=== PATIENT | male | born 1990 | race African-American/Black ===

== ENCOUNTER 2018-05-16 15:38 | Emergency (ER) | payer SELFPAY ==
[~2018-05-16] VITALS: Ht 177.8 cm; Wt 130.0 kg
[2018-05-16] MEDS ORDERED: TORADOL PO (16:34)
[2018-05-16 16:38] VITALS: BP 149/79
== END 2018-05-16 16:40 | disposition home or self-care (01) | DRG 556 ==
LOC: ED 15:38
DX: M25.562 Pain in left knee (principal); S80.02XA Contusion of left knee, initial encounter; W01.0XXA Fall on same level from slipping, tripping and stumbling without subsequent striking against object, initial encounter; Y93.89 Activity, other specified; Y92.69 Other specified industrial and construction area as the place of occurrence of the external cause; Y99.0 Civilian activity done for income or pay

== ENCOUNTER 2020-08-15 16:59 | Emergency (ER) | payer SELFPAY ==
[~2020-08-15] VITALS: Ht 177.8 cm; Wt 136.0 kg
[~2020-08-15 16:59] MED LIST: TORADOL PO
[2020-08-15 20:40] VITALS: BP 148/79
== END 2020-08-15 20:40 | disposition home or self-care (01) | DRG 605 ==
LOC: ED 16:59
DX: S80.02XA Contusion of left knee, initial encounter (principal); W01.0XXA Fall on same level from slipping, tripping and stumbling without subsequent striking against object, initial encounter; Y92.89 Other specified places as the place of occurrence of the external cause; Y99.0 Civilian activity done for income or pay

== ENCOUNTER 2020-10-26 19:03 | Emergency (ER) | payer SELFPAY ==
[~2020-10-26] VITALS: Ht 177.8 cm; Wt 136.0 kg
[2020-10-26 21:54] VITALS: BP 160/74
== END 2020-10-26 21:54 | disposition home or self-care (01) | DRG 563 ==
LOC: ED 19:03
DX: S62.637A Displaced fracture of distal phalanx of left little finger, initial encounter for closed fracture (principal); S60.152A Contusion of left little finger with damage to nail, initial encounter; F17.200 Nicotine dependence, unspecified, uncomplicated; W23.0XXA Caught, crushed, jammed, or pinched between moving objects, initial encounter; Y93.89 Activity, other specified; Y92.009 Unspecified place in unspecified non-institutional (private) residence as the place of occurrence of the external cause

== ENCOUNTER 2020-11-15 13:03 | Emergency (ER) | payer SELFPAY ==
[~2020-11-15] VITALS: Ht 177.8 cm; Wt 159.0 kg
[2020-11-15 15:40] VITALS: BP 129/74
== END 2020-11-15 15:40 | disposition home or self-care (01) | DRG 153 ==
LOC: ED 13:03
DX: J06.9 Acute upper respiratory infection, unspecified (principal); F17.200 Nicotine dependence, unspecified, uncomplicated; Z20.822 Contact with and (suspected) exposure to COVID-19

== ENCOUNTER 2023-02-23 03:11 | Emergency (ER) | payer SELFPAY ==
[2023-02-23] VITALS (29 sets, daily range): BP systolic 139–211; BP diastolic 89–122
[~2023-02-23] VITALS: Ht 177.8 cm; Wt 143.8 kg
[2023-02-23 03:51] LABS: BASO% 0.6 % (0-3); HEMATOCRIT 40.5 % (39.0-50.0); HEMOGLOBIN 12.4 g/dl (14.0-18.0); IMMATURE GRANULOCYTES 0.6 % (0.0-5.0); LYMPH% 32.7 % (15-41); MEAN CELL VOLUME 91.4 fL CALC (80.0-100.0); MEAN CORPUSCULAR HGB CONC 30.6 g/dL CAL (32.0-36.0); NEUT# 5.96 thou/uL (1.82-7.42); NEUT% 58.1 % (42-76); RED BLOOD COUNT 4.43 mill/uL (4.70-6.10); RED CELL DISTRI WIDTH 11.7 % (11.5-15.5)
[2023-02-23 04:01] LABS: URINE BILIRUBIN - DIPSTICK NEGATIVE (NEGATIVE); URINE BLOOD DIPSTICK SMALL (NEGATIVE); URINE COLOR YELLOW; URINE GLUCOSE - DIPSTICK NEGATIVE (NEGATIVE); URINE KETONE NEGATIVE (NEGATIVE); URINE PH 6.5 (4.5-8.0); URINE PROTEIN - DIPSTICK NEGATIVE (NEG-TRACE); URINE SPECIFIC GRAVITY 1.015
[2023-02-23 04:04] LABS: ALKALINE PHOSPHATASE 75 u/l (38-126); AMYLASE 75 u/l (30-110); ANION GAP 9 (6-22 (CALC)); BUN 13 mg/dL (9-20); CARBON DIOXIDE 26 mmol/l (22-30); CHLORIDE 106 mmol/l (95-108); LIPASE 39 u/l (23-300); POTASSIUM 3.8 mmol/l (3.5-5.1); SODIUM 137 mmol/l (137-146); TOTAL PROTEIN 6.9 g/dL (6.3-8.2)
[2023-02-23 04:05] LABS: URINE NITRITE - DIPSTICK NEGATIVE (Negative)
[2023-02-23 04:08] LABS: URINE BACTERIA FEW hpf; URINE EPITHELIAL CELLS FEW EPI/hpf (0-FEW); URINE LEUK ESTERASE NEGATIVE (NEGATIVE); URINE WBC 0-2 WBC/hpf (0-5)
[2023-02-23 04:10] LABS: BILIRUBIN, TOTAL 0.2 mg/dL (0.2-1.3); BUN/CREATININE RATIO 13 (12-20 (CALC)); GFR FOR AFR.AMER. > 60 ML/MIN (>=60 (CALC)); GFR OTHER RACES > 60 ML/MIN (>=60 (CALC)); SGOT/AST 33 u/l (17-59)
[2023-02-23] MEDS ORDERED: OMNI-PAC300 MG PO (07:20)
== END 2023-02-23 07:45 | disposition home or self-care (01) | DRG 696 ==
LOC: ED 03:11
PROVIDERS: Emergency Medicine
DX: R31.9 Hematuria, unspecified (principal); R10.30 Lower abdominal pain, unspecified; I10 Essential (primary) hypertension; F17.200 Nicotine dependence, unspecified, uncomplicated; Z20.822 Contact with and (suspected) exposure to COVID-19
CPT/HCPCS: Q9967

== ENCOUNTER 2023-07-07 18:16 | Emergency (ER) | payer SELFPAY ==
[~2023-07-07] VITALS: Ht 177.8 cm; Wt 136.0 kg
[~2023-07-07 18:16] MED LIST changes: +OMNI-PAC300 MG PO
[2023-07-07 18:21] VITALS: BP 160/108
[2023-07-07 18:30] VITALS: BP 164/108
[2023-07-07 18:35] VITALS: BP 164/108
[2023-07-07 19:50] LABS: URINE BILIRUBIN - DIPSTICK Negative (NEGATIVE); URINE BLOOD DIPSTICK Trace-intact (NEGATIVE); URINE GLUCOSE - DIPSTICK Negative (NEGATIVE); URINE KETONE Trace mg/dL (NEGATIVE); URINE LEUK ESTERASE Negative (NEGATIVE); URINE NITRITE - DIPSTICK Negative (Negative); URINE PROTEIN - DIPSTICK 30 mg/dL (NEG-TRACE); URINE SPECIFIC GRAVITY 1.025; URINE UROBILINOGEN - DIPSTICK >=8.0 E.U./dL (0.2)
[2023-07-07 19:55] LABS: URINE COLOR Yellow
[2023-07-07 20:02] LABS: URINE RBC 0-2 RBC/hpf (0-5); URINE WBC 0-2 WBC/hpf (0-5)
[2023-07-07] MEDS ORDERED: CYCLOBENZAPRINE10 MG PO (20:04)
[2023-07-07] MEDS ORDERED: ULTRAM50 MG PO (20:04)
== END 2023-07-07 20:20 | disposition home or self-care (01) | DRG 563 ==
LOC: ED 18:16
PROVIDERS: Emergency Medicine
DX: S39.012A Strain of muscle, fascia and tendon of lower back, initial encounter (principal); I10 Essential (primary) hypertension; X50.0XXA Overexertion from strenuous movement or load, initial encounter

== ENCOUNTER 2023-07-27 10:17 | Emergency (ER) | payer OTHER ==
[~2023-07-27] VITALS: Ht 177.8 cm; Wt 140.0 kg
[2023-07-27] VITALS (8 sets, daily range): BP systolic 158–175; BP diastolic 98–120
[~2023-07-27 10:17] MED LIST changes: +CYCLOBENZAPRINE10 MG PO; +ULTRAM50 MG PO
[2023-07-27] MEDS ORDERED: PREDNISONE50 MG PO (11:19)
[2023-07-27] MEDS ORDERED: TRAMADOL HYDROC50 M1 PO (11:19)
[2023-07-27] MEDS ORDERED: FLEXERIL5 M1 PO (11:19)
[2023-07-27] MEDS ORDERED: HYDROCHLOROT12.5 M1 PO (11:21)
== END 2023-07-27 11:47 | disposition home or self-care (01) | DRG 552 ==
LOC: ED 10:17
DX: M54.50 Low back pain, unspecified (principal); I10 Essential (primary) hypertension; E66.01 Morbid (severe) obesity due to excess calories; F17.210 Nicotine dependence, cigarettes, uncomplicated